=== PATIENT | female | born 1950 | race Caucasian/White ===

== ENCOUNTER → 2017-10-18 | Outpatient (CLI) | payer BC ==
--- NOTE | 2017-10-22 14:31 | CT ---
EXAMINATION TYPE: CT shoulder LT wo con DATE OF EXAM: 10/19/2017 COMPARISON: No plain film supplied for correlation HISTORY: Fracture CT DLP: 573.5 mGycm Automated exposure control for dose reduction was used. FINDINGS: Comminuted proximal left humeral fracture is present with displaced fragments, there is no dislocatio n present. Fracture line extends to the posterior aspect of the glenohumeral joint level. Acromioclav icular joint appears intact. No evident clavicular fracture. Left lung apex as visualized is normal. Soft tissue edema possible ecchymosis is present. IMPRESSION: COMMINUTED PROXIMAL LEFT HUMERAL FRACTURE.
== END | disposition home or self-care (01) ==
LOC: RADCTMAIN 19:05
PROVIDERS: ATTEND Orthopaedic Surgery
DX: S42.252A Displaced fracture of greater tuberosity of left humerus, initial encounter for closed fracture (principal)

== ENCOUNTER 2017-10-30 12:18 | Day surgery (SDC) | payer BC ==
[2017-10-25 09:21] VITALS: BMI 35.5
[~2017-10-30 12:18] MED LIST: CLINDAMYCIN 900 MG in DEXTROSE 5% IN WATER 50 ML IVPB ONE; TRANEXAMIC ACID 1,000 MG in SODIUM CHLORIDE 0.9% 100 ML IVPB ONE
[2017-10-30] MEDS ORDERED: LACTATED RINGERS 1,000 ML IV ONE ×2 (13:04→15:02)
[2017-10-30] MEDS ORDERED: LIDOCAINE 1% 20 ML VIAL (10MG/ML) FOR IV START INTRADERMA ONE (13:05)
[2017-10-30] MEDS ORDERED: MIDAZOLAM 2 MG/2 ML VIAL IV ONE (13:08)
[2017-10-30] MEDS ORDERED: ONDANSETRON 4 MG/2 ML VIAL IVP ONE (13:09)
[2017-10-30] MEDS ORDERED: DEXAMETHASONE SOD PHOSPHATE 10 MG/ML 1 ML VIAL IV ONE (13:09)
--- NOTE | 2017-10-30 13:20 | P.ONQ ---
Anesthesiology Proc Note - PNB - Peripheral Nerve Block Performed Left Interscalene Single Time Out Performed: Yes (9214) Procedure Start Time: 13:09 Procedure Stop Time: 13:20 Indication: Acute Post-Operative Pain, Requested by physician Sedation Type: Sedate with meaningful contact maintained Preparation: Sterile Prep Position: Supine Catheter: None Needle Types: Facet Needle Size: 100mm (4") Needle Gauge: 20 Technique: Ultrasound Injectate: 2.0% Lidocaine (see comment for volume) (15 mls of Ropivacaine 0.5% + 15 mls of Lidocasine 1% with epi) Adjunct: Epinephrine (see comment for dilution ratio) Blood Aspirated: No Pain Paresthesia on Injection Noted: No Resistance on Injection: Normal Events: Uneventful and Well Tolerated
[2017-10-30] MEDS ORDERED: PROPOFOL 10 MG/ML 20 ML VIAL IV ONE (13:26)
[2017-10-30] MEDS ORDERED: fentaNYL (PF) 50 MCG/ML 2 ML AMP ONE (13:26)
[2017-10-30] MEDS ORDERED: SUCCINYLCHOLINE CHLORIDE 100 MG/5 ML SYR IV ONE (13:26)
[2017-10-30] MEDS ORDERED: LIDOCAINE 1% INJ 10MG/ML (20 ML MDV) ONE (13:26)
[2017-10-30] MEDS ORDERED: ROCURONIUM BROMIDE 10 MG/ML 10 ML VIAL IV ONE (13:26)
[2017-10-30] MEDS ORDERED: ePHEDrine SULFATE/0.9% NACL/PF 50 MG/5 ML SYRINGE IV ONE (13:26)
[2017-10-30] MEDS ORDERED: MIDAZOLAM 2 MG/2 ML VIAL ONE (13:26)
[2017-10-30] MEDS ORDERED: CLINDAMYCIN 600 MG in SODIUM CHLORIDE 0.9% 1,000 ML IRRIGATION ONE (14:06)
--- NOTE | 2017-10-30 15:38 | XR ---
Fluoroscopy INDICATION: Pain FINDINGS: Fluoroscopy time: 47 seconds. Images obtained: 5. IMPRESSIONS: 1. Documentation of fluoroscopy.
[2017-10-30] MEDS ORDERED: hydrOXYzine PAMOATE 25 MG CAP PO PRN (16:15)
[2017-10-30] MEDS ORDERED: HYDROmorphone 1 MG/ML 1 ML SYRINGE IVP PRN ×3 (16:15)
[2017-10-30] MEDS ORDERED: ONDANSETRON 4 MG/2 ML VIAL IVP PRN (16:15)
[2017-10-30] MEDS ORDERED: TEMAZEPAM 15 MG CAP PO PRN (16:15)
[2017-10-30] MEDS ORDERED: SENNOSIDES-DOCUSATE SODIUM 1 EACH TAB PO PRN (16:15)
[2017-10-30] MEDS ORDERED: HYDROcodone/APAP 7.5-325MG 1 EACH TAB PO PRN (16:17)
[2017-10-30] MEDS: LACTATED RINGERS 1,000 ML IV SCH (18:29)
[2017-10-30] MEDS: LOSARTAN 50 MG TAB PO SCH (22:54)
[2017-10-30] MEDS: ATORVASTATIN 20 MG TAB PO SCH (22:54)
[2017-10-30] MEDS: CLINDAMYCIN 900 MG in DEXTROSE 5% IN WATER 50 ML IVPB SCH ×2 (23:30)
[2017-10-31] MEDS: HYDROcodone/APAP 7.5-325MG 1 EACH TAB PO PRN ×5 (03:41→23:53)
[2017-10-31] MEDS: LACTATED RINGERS 1,000 ML IV SCH ×2 (06:12→12:41)
[2017-10-31] MEDS: LEVOTHYROXINE 50 MCG TAB PO SCH (06:25)
--- NOTE | 2017-10-31 07:45 | CONS ---
CONSULTATION REASON FOR CONSULTATION: Advice regarding hypertension and hyperlipidemia requested by orthopedic surgery. HISTORY OF PRESENT ILLNESS: This 67-year-old woman with a past medical history of hypertension, hyperlipidemia, hypothyroidism, history of DJD being followed by Dr. Naik in the outpatient setting underwent left humeral head ORIF. The patient had a scalene block. There is no pain at this time. There is no chest pain or palpitation. No history of headache, loss of consciousness or seizures. Occasional cough is reported. PAST MEDICAL HISTORY: Hypertension, hyperlipidemia, hypothyroidism, history of degenerative joint disease. MEDICATIONS: Prior to admission include home medications are: 1. Losartan 50 mg q.h.s. 2. Levothyroxine 50 mcg p.o. daily. 3. Stanton 5 mg q.8h p.r.n. 4. Lipitor 10 mg. ALLERGIES: CODEINE, PENICILLIN. FAMILY HISTORY: No history of heart disease or strokes family. SOCIAL HISTORY: No history of smoking. No history of alcohol intake. REVIEW OF SYSTEMS: ENT: No diminished vision. No diminished hearing. Cardiovascular: No angina. Respiration: No cough or hemoptysis. GI no nausea. : No dysuria. Nervous system: No numbness, weakness. Allergy/Immunology: No asthma or hayfever. Musculoskeletal: As mentioned earlier. Hematology/Oncology: No history of anemia. ENDOCRINE: No history of diabetes, hypothyroidism. Constitutional: As mentioned earlier. Dermatology: Negative. Rheumatology: Negative. Psychiatric: As mentioned earlier. PHYSICAL EXAMINATION: The patient is alert and oriented times three. Pulse 98, blood pressure 120/62, respirations 20, temperature normal, pulse ox normal. HEENT is conjunctivae normal. Oral mucosa moist. Neck is no jugular venous distention. No carotid bruit. No lymph node enlargement. Cardiovascular S1, S2 muffled. Respiratory: Breath sounds diminished in the bases. A few scattered rhonchi. No crackles. ABDOMEN: Soft, nontender. No mass palpable. Legs no edema. Nervous system: Higher functions as mentioned earlier. Moves all four extremities. Lymphatics: No lymph nodes palpable in the neck, axillae or groin. Skin: No ulcer, rash or bleeding. LABS: The previous labs prior to admission, CBC, CMP noted. ASSESSMENT: 1. Status post ORIF of the left humerus. 2. Hypertension. 3. Hyperlipidemia. 4. Hypothyroidism. 5. History of degenerative joint disease. RECOMMENDATION AND DISCUSSION: In this 67-year-old woman who presented with multiple medical problems, we will monitor the patient closely. Continue current management and symptomatic treatment. Recommend resume the home medications and closely follow. Monitor blood pressure closely. Incentive spirometry. DVT prophylaxis. We will follow the patient closely. The patient may be asked to follow with Dr. Sean Naik closely after discharge. Thank you Dr. Stallings, for letting us participate in the care of this patient. MMODL / IJN: [id number] /
[2017-10-31] MEDS: CLINDAMYCIN 900 MG in DEXTROSE 5% IN WATER 50 ML IVPB SCH ×2 (07:50)
--- NOTE | 2017-10-31 07:56 | OP ---
OPERATIVE REPORT DATE OF SERVICE: 10/30/2017. SURGEON: Sean Stallings DO SANDWICH MACHINE OPERATOR: Rachana Pitts NP PREOPERATIVE DIAGNOSIS: A minimally displaced 3 part fracture humeral head and displaced surgical neck fracture. POSTOPERATIVE DIAGNOSIS: A minimally displaced 3 part fracture humeral head and displaced surgical neck fracture. PROCEDURE PERFORMED: Open reduction and internal fixation utilizing a periarticular plate for a multipart, minimally displaced fracture of the left humeral head and proximal of the humerus with periarticular plate. DESCRIPTION OF PROCEDURE: Patient was taken to the operative suite and placed in supine position. The regional anesthesia was given in the perioperative area. General inhalation anesthesia was then performed and patient's arm is secured in a beach chair position. Betadine prep was carried out on the left shoulder. Sterile drapes applied in the usual manner. Anterior incision was developed. Blunt dissection through the subcutaneous tissues was performed. The cephalic vessel was identified and resection of the deltoid was then carried out along the anterior border of the distal clavicle and anterior border of the acromion. The deltoid muscle was then retracted. Direct visualization of the fracture was made. The fracture fragments were aligned. The periarticular plate was then positioned and the two guidewires were placed through the plate and directly in their position. Peg locking screws and locking screws were inserted into the humeral head. This was all visualized with the utilization of imaging x ray. Position of the fracture alignment was carried out and the plate was secured to the proximal humerus with locking screws. The area was irrigated copiously and fixation noted. A #2 Ethibond suture was then utilized for the soft tissue around the tuberosity fracture and secured into the plate for this repair. The arm was slightly abducted. The area was irrigated copiously with antibiotic solution. The deltoid musculature was then reapproximated into the acromion and anterior portion of the clavicle. The muscle fascia was gently approximated with #1 Vicryl suture interrupted fashion. Subcutaneous tissue was reapproximated with 2-0 Vicryl suture in interrupted fashion. The skin was approximated with 3-0 Quill suture in a subcuticular fashion. Dermabond and sterile pressure dressing was applied. Patient was placed in an abductor slingshot, abductor pillow splint. The patient returned to recovery in satisfactory postop condition. GROSS PATHOLOGY: There is evidence of multipart fracture of the left humeral head with surgical neck fracture of the proximal humerus and a small fracture at the tuberosity without significant displacement at this time. MMJIMMYL / IJN: [id number] / [place]LER
[2017-10-31 08:18] LABS: Basophils % (A) 0 %; Eosinophils % (A) 0 %; HCT 39.9 % (34.0-46.0); Lymphocytes # (A) 1.2 k/uL (1.0-4.8); Lymphocytes % (A) 9 %; MCH 28.8 pg (25.0-35.0); MCHC 30.4 g/dL (31.0-37.0); MCV 94.7 fL (80.0-100.0); Monocytes # (A) 0.9 k/uL (0-1.0); Monocytes % (A) 6 %; Neutrophils # (A) 11.3 k/uL (1.3-7.7); Neutrophils % (A) 84 %; Platelet Count 397 k/uL (150-450); RBC 4.21 m/uL (3.80-5.40); RDW 14.5 % (11.5-15.5); WBC 13.5 k/uL (3.8-10.6)
[2017-10-31 08:20] LABS: HGB 12.1 gm/dL (11.4-16.0)
--- NOTE | 2017-10-31 08:32 | P.PN ---
Subjective Progress Note Date: 10/31/17 Principal diagnosis: Status post ORIF left proximal humerus This is a 67 year-old female post right total knee arthroplasty. This is post- op day 1. The patient was evaluated at the bedside today. The patient denies nausea, vomiting, abdominal pain, chest pain, or shortness of breath this morning. She states her pain is controlled at this time. The patient has been ambulating to the bathroom without difficulty. Objective - Vital Signs Vital signs: Vital Signs Temp 98.3 F 10/31/17 07:00 Pulse 84 10/31/17 07:00 Resp 16 10/31/17 07:00 BP 103/64 10/31/17 07:00 Pulse Ox 93 L 10/31/17 07:00 Intake & Output 10/30/17 10/31/17 10/31/17 18:59 06:59 18:59 Intake Total 1707 118 Output Total 125 Balance 1582 118 Weight 99.79 kg Intake: IV 1707 Oral 118 Output: Estimated Blood Loss 125 Other: # Voids 1 - Exam The patient does not appear in acute distress. Alert and orientated x3. Dressing is clean dry and intact. Incision appears fine with no erythema or active drainage. Good hand and wrist motion without difficulty. Sensation and circulatory status is intact. - Labs CBC & Chem 7: 10/31/17 07:06 Labs: Abnormal Lab Results - Last 24 Hours (Table) 10/31/17 Range/Units 07:06 WBC 13.5 H (3.8-10.6) k/uL MCHC 30.4 L (31.0-37.0) g/dL Neutrophils # 11.3 H (1.3-7.7) k/uL Assessment and Plan Plan: 1. Continue pain control 2. Continue sling shot arm sling at all times 3. Anticipate discharge home tomorrow
[2017-10-31] MEDS: LOSARTAN 50 MG TAB PO SCH (20:22)
[2017-10-31] MEDS: ATORVASTATIN 20 MG TAB PO SCH (20:22)
--- NOTE | 2017-10-31 20:54 | PN ---
PROGRESS NOTE DATE OF SERVICE: 10/31/2017 This 67-year-old woman was admitted after ORIF of the left humeral head, is complaining of severe pain at this time. No chest pain. No palpitations. No fever. EXAM: Alert and oriented x3. Pulse 97, blood pressure 148/55, respirations 18, temperature 97.2, pulse ox 98% on room air. HEENT: Conjunctivae normal. Oral mucosa moist. NECK: No jugular venous distention. No carotid bruits. No lymph node enlargement. CARDIOVASCULAR: S1, S2 muffled. No S3. No S4. RESPIRATORY: Breath sounds diminished in the bases and a few rhonchi. No crackles. ABDOMEN: Soft, nontender. No mass palpable. LEGS: No edema. No swelling. NERVOUS SYSTEM: Higher functions as mentioned earlier. Moves all 4 limbs. No focal motor or sensory deficits. LYMPHATIC: No lymphadenopathy in neck or axillae. LEFT SHOULDER: Status post surgery. LABS: WBC 13.5. ASSESSMENT: 1. Status post open reduction and internal fixation of the left humerus. 2. Hypertension. 3. Hyperlipidemia. 4. Hypothyroidism. 5. History of degenerative joint disease. RECOMMENDATIONS AND DISCUSSION: Recommend to continue current medical management and symptomatic treatment. Otherwise, I would recommend incentive spirometry, DVT prophylaxis. Closely monitor. Further recommendations to follow. MMODL / IJN: [id number] /
[2017-11-01] MEDS: LACTATED RINGERS 1,000 ML IV SCH ×2 (00:08→11:25)
[2017-11-01 01:34] VITALS: RESP 16
[2017-11-01] MEDS: LEVOTHYROXINE 50 MCG TAB PO SCH (06:04)
[2017-11-01 07:58] VITALS: BP 113/69; PULSE 75; TEMP 97.7
--- NOTE | 2017-11-01 08:30 | P.DS ---
Providers Expected date of discharge: 11/01/17 Attending physician: Sean Stallings Consults: 10/30/17 16:15 Consult Physician Routine Consulting Provider: Sean Naik Consult Reason/Comments: medical management Do you want consulting provider notified?: Yes Primary care physician: Stated None - Discharge Diagnosis(es) (1) Fracture of humerus, proximal, left, closed Status: Acute (2) History of open reduction and internal fixation (ORIF) procedure Status: Acute Hospital Course: This is a 67-year-old female with known history of a proximal humerus fracture after falling at [employer]. The patient presented to the orthopedic office for evaluation. After discussion and consideration patient elects to proceed with an ORIF of the proximal humerus. The patient is seen preoperatively by her primary care physician and cleared for surgery. Patient is admitted to observation at [facility] on 10/30/2017 for an ORIF of the left proximal humerus The procedures performed without complication or sequelae. The patient is doing well postoperatively. Labs and vital signs are stable on day of discharge. On day of discharge patient's shoulder incision is healing well. There is minimal erythema. There is no drainage noted at this time. There is minimal soft tissue swelling to the left upper extremity. Patient has full hand, wrist , and elbow motion without difficulty or pain. Neurovascular status to the left upper extremity is intact. Patient is discharged to home in good condition. Pertinent Studies: Laboratory Tests 10/31/17 07:06 WBC 13.5 H RBC 4.21 Hgb 12.1 D Hct 39.9 Patient Condition at Discharge: Stable Plan - Discharge Summary Discharge Rx Participant: No New Discharge Prescriptions: New Sennosides-Docusate Sodium [Senokot-S] 2 tab PO DAILY #30 tablet Clindamycin HCl [Cleocin] 300 mg PO Q8H #15 cap HYDROcodone/APAP 5-325MG [[place] 5] 1 - 2 each PO Q4-6H PRN #60 tab PRN Reason: Pain No Action HYDROcodone/APAP 5-325MG [[place] 5-325] 1 tab PO Q6HR PRN PRN Reason: Pain Atorvastatin [Lipitor] 20 mg PO HS Levothyroxine Sodium [Synthroid] 50 mcg PO DAILY Losartan Potassium 50 mg PO HS Discharge Medication List Atorvastatin [Lipitor] 20 mg PO HS 10/25/17 [History] HYDROcodone/APAP 5-325MG [[place] 5-325] 1 tab PO Q6HR PRN 10/25/17 [History] Levothyroxine Sodium [Synthroid] 50 mcg PO DAILY 10/25/17 [History] Losartan Potassium 50 mg PO HS 10/25/17 [History] Clindamycin HCl [Cleocin] 300 mg PO Q8H #15 cap 11/01/17 [Rx] HYDROcodone/APAP 5-325MG [[place] 5] 1 - 2 each PO Q4-6H PRN #60 tab 11/01/17 [Rx] Sennosides-Docusate Sodium [Senokot-S] 2 tab PO DAILY #30 tablet 11/01/17 [Rx] Follow up Appointment(s)/Referral(s): Sean Stallings DO [Doctor of Osteopathic Medicine] - 11/15/17 1:30 pm Sean Naik DO [Doctor of Osteopathic Medicine] - 1 Week (Please call Dr. Naik office on SaturdayNov 04 to set up a follow up appointment, office is closed today) Activity/Diet/Wound Care/Special Instructions: Keep incision clean and dry Change dressing daily May shower if no drainage from incision Keep arm sling/abductor pillow in place except when bathing Follow up with Dr. Stallings in 2 weeks. Call [facility] with any questions or concerns. [phone] Discharge Disposition: HOME SELF-CARE
[2017-11-01] MEDS ORDERED: HYDROmorphone 2 MG/ML 1 ML SYRINGE IVP PRN ×3 (08:47)
[2017-11-01] MEDS: HYDROcodone/APAP 7.5-325MG 1 EACH TAB PO PRN ×2 (09:00→12:53)
--- NOTE | 2017-11-02 08:14 | PN ---
PROGRESS NOTE DATE OF SERVICE: 11/01/2017 I am covering for Dr. Naik. HISTORY: This 67-year-old woman was admitted after ORIF of the left humerus is improving significantly. No chest pain. No palpitations. No fever. EXAM: Alert and oriented times three. Pulse 75, blood pressure 113/69, respirations 16, temperature 97.2, pulse ox 98% on room air. HEENT: Conjunctivae normal. Neck: No jugular venous distention. Cardiovascular: S1, S2 muffled. Respiration: Breath sounds diminished in the bases. No rhonchi and no crackles. Abdomen is soft, nontender. Legs are no edema, no swelling. Central nervous system: No focal deficits. Left arm status post surgery. LAB: Investigations noted. ASSESSMENT: 1. Status post ORIF of the left humerus. 2. Hypertension. 3. Hyperlipidemia. 4. Hypothyroidism. 5. History of degenerative joint disease. RECOMMENDATIONS AND DISCUSSION: Recommend to continue current medications, management and symptomatic treatment, resume home medications and incentive spirometry, DVT prophylaxis. Closely follow with primary doctor, Dr. Naik and also with Orthopedic surgery. Further recommendations to follow. MMODL / IJN: [id number] /
== END 2017-11-01 13:20 | disposition home or self-care (01) ==
LOC: OR 12:18 → 3SUR 15:55 → OR 11-01 13:20
PROVIDERS: ATTEND Orthopaedic Surgery
DX: S42.252A Displaced fracture of greater tuberosity of left humerus, initial encounter for closed fracture (principal); S42.292A Other displaced fracture of upper end of left humerus, initial encounter for closed fracture; S42.222A 2-part displaced fracture of surgical neck of left humerus, initial encounter for closed fracture; W10.8XXA Fall (on) (from) other stairs and steps, initial encounter; M19.90 Unspecified osteoarthritis, unspecified site; I10 Essential (primary) hypertension; E78.5 Hyperlipidemia, unspecified; E03.9 Hypothyroidism, unspecified; Z79.899 Other long term (current) drug therapy; Z88.5 Allergy status to narcotic agent; Z88.0 Allergy status to penicillin
CPT/HCPCS: 94760; 64415; 85025; 73020; C1713; J2250; J1100; J2405; J2001; J3010; J0330; J2704

== ENCOUNTER → 2024-06-04 | Outpatient (CLI) | payer MEDICARE, BC | END | disposition home or self-care (01) | LOC: LABPRL 10:30 | PROVIDERS: ATTEND Family Medicine | DX: E78.5 Hyperlipidemia, unspecified (principal); E11.9 Type 2 diabetes mellitus without complications; E03.9 Hypothyroidism, unspecified | CPT/HCPCS: 80053; 80061; 83036; 84439; 84443; 85025 ==